=== PATIENT | male | born 1960 | race Caucasian/White ===

== ENCOUNTER 2022-01-16 13:52 | Emergency (ER) | payer MEDICAID ==
[~2022-01-16] VITALS: Ht 170.2 cm; Wt 73.5 kg
[2022-01-16 14:28] VITALS: BP 123/74
--- NOTE | 2022-01-16 14:31 | NUR ---
PT AMBULATED TO ER BED 7 WITH A STEADY GAIT.
--- NOTE | 2022-01-16 14:38 | NUR ---
61 Y/O MALE C/O LEFT EYE PAIN 7/10 DESCRIBES ACHING X1DAY. PT HAS NOTED REDNESS TO LEFT EYE NO EDEMA PRESENT. DENIES FEVER/CHILLS. DENIES N/V/D. PMH: DM, HTN, HLD, OPEN HEART SX [id number] AGO. BLOOD SUGAR 113 NKA
[2022-01-16] MEDS ORDERED: FLUORESCEIN OPTH STRIP 1 MG OP ONE (14:45)
[2022-01-16] MEDS ORDERED: TETRACAINE HCL/PF 0.5% OPTH 4 ML BTL OP ONE (14:45)
[2022-01-16] MEDS ORDERED: TOMOMETER 1 DEV DEV MC ONE (15:21)
[2022-01-16] MEDS ORDERED: OLOP2.5D7 LEFT EYE (16:37)
[2022-01-16] MEDS ORDERED: POLY15SO48 LEFT EYE (16:37)
--- NOTE | 2022-01-16 16:45 | NUR ---
PT RESTING IN BED RR EVEN AND UNLABORED, WILL CONTINUE TO MONITOR.
[2022-01-16 17:06] VITALS: BP 119/71
--- NOTE | 2022-01-16 17:07 | NUR ---
Patient discharged with v/s stable. Written and verbal after care instructions given FOR ALLERGIC CONJUNCTIVITIS and explained. Patient alert, oriented and verbalized understanding of instructions. Ambulatory with steady gait. All questions addressed prior to discharge. ID band removed. Patient advised to follow up with PMD. Rx of OLOPATADINE, AND POLYVINYL ALCOHOL given. Patient educated on indication of medication including possible reaction and side effects. Opportunity to ask questions provided and answered.
== END 2022-01-16 17:07 | disposition home or self-care (01) ==
LOC: MED 13:52
DX: H10.12 Acute atopic conjunctivitis, left eye (principal); I10 Essential (primary) hypertension; E11.9 Type 2 diabetes mellitus without complications; Z79.4 Long term (current) use of insulin; Z79.899 Other long term (current) drug therapy; Z98.890 Other specified postprocedural states
CPT/HCPCS: 81002; 82948; 99283